=== PATIENT | female | born 1950 | race Caucasian/White ===

== ENCOUNTER → 2018-05-05 08:14 | Outpatient (CLI) | payer MEDICARE, OTHER, SELFPAY ==
[2018-05-05 09:49] LABS: Add Manual Diff / Slide Review NO; Basophils Percent Auto 0.6 % (0-2); Eosinophils Percent Auto 1.9 % (2-4); Hematocrit 41.3 % (36-46); Hemoglobin 13.8 g/dL (12.0-16.0); Lymphocytes Percent Auto 31.6 % (25-40); Mean Corpuscular HGB Conc 33.5 % (30-36); Mean Corpuscular Hemoglobin 29.9 PG (26-34); Mean Corpuscular Volume 89.2 fL (80-100); Monocytes Percent Auto 6.4 % (3-14); Neutrophils Absolute Auto 3000 /uL (3000-5900); Neutrophils Percent Auto 59.5 % (50-75); Platelet Count 317 X10^3/uL (150-400); Red Blood Cell Count 4.63 X10^6/uL (4.0-5.2); Red Cell Distribution Width 14.9 % (11.6-14.8)
[2018-05-05 10:27] LABS: Alanine Aminotransferase 63 IU/L (9-52); Albumin 4.3 g/dL (3.5-5.0); Albumin Globulin Ratio 1.7 (1.0-2.8); Alkaline Phosphatase 101 U/L (38-126); Aspartate Aminotransferase 39 IU/L (14-36); Blood Urea Nitrogen 21 mg/dL (7-17); Calcium 9.4 mg/dL (8.4-10.2); Carbon Dioxide 30 mmol/L (22-32); Chloride 104 mmol/L (98-107); Cholesterol 152 mg/dL (140-199); Estimated Glomerular Filt Rate > 60.0 mL/min (>60); Globulin 2.5 g/dL (1.7-4.1); Glucose 95 mg/dL (80-110); HDL Cholesterol 71 mg/dL (40-60); HEMOLYSIS < 15 (0-50); LDL Cholesterol Calculated 73 mg/dL (<100); Potassium 4.5 mmol/L (3.4-5.1); Sodium 141 mmol/L (137-145); Total Protein 6.8 g/dL (6.3-8.2); Triglycerides 38 mg/dL (35-150)
[2018-05-05 10:53] LABS: Thyroid Stimulating Hormone 2.75 uIU/mL (0.47-4.68)
== END ==
PROVIDERS: Family Provider Internal Medicine; PCP Internal Medicine; Visit Provider Internal Medicine
DX: I25.2 Old myocardial infarction (principal); I10 Essential (primary) hypertension; E78.5 Hyperlipidemia, unspecified
CPT/HCPCS: 36415; 80053; 80061; 84443; 85025

== ENCOUNTER → 2018-08-23 08:26 | Outpatient (CLI) | payer MEDICARE, OTHER, SELFPAY ==
[2018-08-23 09:44] LABS: Alanine Aminotransferase 36 IU/L (9-52); Albumin 4.3 g/dL (3.5-5.0); Alkaline Phosphatase 77 U/L (38-126); Aspartate Aminotransferase 22 IU/L (14-36); Bilirubin Total 0.9 mg/dL (0.2-1.3); Bilirubin Unconjugated 0.9 mg/dL (0.0-1.1); Globulin 2.2 g/dL (1.7-4.1); HEMOLYSIS < 15 (0-50); Total Protein 6.5 g/dL (6.3-8.2)
== END ==
PROVIDERS: PCP Internal Medicine; Visit Provider Internal Medicine
DX: R74.8 Abnormal levels of other serum enzymes (principal)
CPT/HCPCS: 36415; 80076

== ENCOUNTER → 2019-03-22 13:04 | Outpatient (CLI) | payer MEDICARE, OTHER, SELFPAY ==
--- NOTE | 2019-03-22 | DI.US.S_ITS ---
ULTRASOUND OF RIGHT BREAST: 03/22/2019 CLINICAL: Patient returns for a 6 month follow up of the right breast. Comparison is made to exams dated: 03/22/2019 mammogram, 01/07/2017 ultrasound, 01/07/2017 mammogram, 02/11/2016 ultrasound, 02/11/2016 mammogram, and 01/29/2016 mammogram - [facility]. Color flow ultrasound of the right breast was performed on the areas of interest. Parsons scale images of the real-time examination were reviewed. There is a round cyst in the right breast at 12 o'clock anterior depth. This round cyst is hypoechoic with internal echoes. This abnormality is decreased in size. Color flow imaging demonstrates that there is no vascularity present. There also is a round cyst in the right breast at 10 o'clock middle depth. This round cyst is hypoechoic with internal echoes. This abnormality is decreased in size and correlates with mammography findings. Color flow imaging demonstrates that there is no vascularity present. IMPRESSION: PROBABLY BENIGN The round cyst in the right breast at 12 o'clock anterior depth is consistent with a complicated cyst and is probably benign. The round cyst in the right breast at 10 o'clock middle depth is consistent with a complicated cyst and is probably benign. A follow-up ultrasound in 12 months is recommended. This exam was interpreted at Station ID: [id number]. SUMMARY: The patient will be due for her bilateral mammogram at this time. Electronically Signed By: Neeru shaikh/:03/23/2019 09:01:02 letter sent: Followup Recommended Ultrasound BI-RADS: 3 Probably benign
--- NOTE | 2019-03-22 | DI.MG.S_ITS ---
BILATERAL DIGITAL DIAGNOSTIC MAMMOGRAM 3D/2D SHORT-TERM FOLLOW-UP: 03/22/2019 CLINICAL: Patient returns for 6 month follow up of right breast, due for bilateral exam. Comparison is made to exams dated: 01/07/2017 mammogram, 02/11/2016 mammogram, and 01/29/2016 mammogram - [facility]. There are scattered fibroglandular elements in both breasts. No significant masses, calcifications, or other findings are seen in either breast. IMPRESSION: INCOMPLETE: NEEDS ADDITIONAL IMAGING EVALUATION There is no mammographic abnormality seen in the right breast to correspond with the ultrasound finding from the January 2017 ultrasound examination, however, ultrasound is recommended to further characterize findings. This exam was interpreted at Station ID: [id number]. NOTE: For mammograms, a report in lay terms will be sent to the patient. Approximately 15% of breast malignancies will not be visualized mammographically. In the management of a palpable breast mass, a negative mammogram must not discourage biopsy of a clinically suspicious lesion. Electronically Signed By: Neeru Byrd M.D. lk/:03/22/2019 13:54:17 ACR BI-RADS Category 0: Incomplete [id number]
== END ==
PROVIDERS: Family Provider Internal Medicine; PCP Internal Medicine; Visit Provider Internal Medicine
DX: R92.8 Other abnormal and inconclusive findings on diagnostic imaging of breast (principal); N60.01 Solitary cyst of right breast
CPT/HCPCS: 76642; 77066; G0279

== ENCOUNTER 2019-05-28 12:51 | Emergency (ER) | payer MEDICARE, OTHER, SELFPAY ==
[2019-05-28 13:17] VITALS: BP 128/59; PULSE 74; RESP 15; TEMP 36.4; O2SAT 99; BMI 24.7
[2019-05-28] MEDS: PROPARACAINE 0.5% OPHTH SOL 1 DROPS EYE-RIGHT (14:19)
[2019-05-28 14:42] VITALS: BP 112/66; PULSE 72; RESP 17; O2SAT 100
--- NOTE | 2019-05-28 17:14 | ED_ITS ---
HPI - Eye Problem <EMILIA Estrella - Last Filed: 05/28/19 17:14> General Chief complaint: Eye Problems Stated complaint: poked right eye Time Seen by Provider: 05/28/19 13:24 Source: patient and family Mode of arrival: ambulatory Limitations: no limitations History of Present Illness HPI Narrative: The patient is a 68year-old female former smoker with history of hypertension who presents with a chief complaint of right eye problems. She states she was weeding, but over to pull a weed and hit herself in the right eye with a bamboo she weed. She states that her vision is normal for her. She wears hard contact lenses and has removed it from her eye. Chart review illustrate her tetanus up-to-date. She denies any abnormal vision, haloing of light, double vision. She denies any acute distress. Patient denies any foreign body sensation. Related Data Previous Rx's Medication Instructions Recorded aspirin 81 mg tablet,delayed 81 mg PO QDAY #90 tab 03/23/18 release atorvastatin 40 mg tablet 40 mg PO HS #90 tab 08/22/18 amlodipine 5 mg tablet 5 mg PO QDAY #90 tab 08/29/18 ciprofloxacin HCl 2 drop EYE-RIGHT Q6HR 5 Days #10 ml 05/28/19 Allergies Allergy/AdvReac Type Severity Reaction Status Date / Time Penicillins Allergy Mild RASH Unverified 08/29/18 10:29 Review of Systems <EMILIA Estrella - Last Filed: 05/28/19 17:14> Review of Systems GENERAL: Denies chills, fatigue, malaise, fever, sweats. HEENT: See HPI RESPIRATORY: Denies dyspnea, cough, wheezing, hemoptysis, sputum. CARDIOVASCULAR: Denies chest pain, palpitations, orthopnea, edema, GASTROINTESTINAL: Denies nausea, vomiting, abdominal pain, diarrhea, constipation, melena. : Denies dysuria, frequency, incontinence, hematuria, urinary retention. MUSCULOSKELETAL: denies weakness, joint pain, or bony pain SKIN: Denies rash, skin lesions, or other NEUROLOGIC: Denies weakness, headache, numbness, change in speech, confusion, seizures, incoordination. PSYCHIATRIC: No concerning psychosocial issues. 12 point review of systems is negative except for those stated above PFSH <DYLAN Estrella - Last Filed: 05/28/19 17:14> Medical History Colon polyps (Chronic) Hyperlipidemia (Chronic) Leukopenia (Chronic) Murmur, cardiac (Chronic) Shoulder pain (Chronic ~07/2013) Chicken pox (Resolved) Surgical History Anesthesia (Resolved) Status post delivery (~1981) Status post tonsillectomy and adenoidectomy (~1957) Family History (Updated 09/18/14 @ 00:00 by Conversion Provider) Father Age: 92 CAD (coronary artery disease) of bypass graft [place], old Diabetes mellitus Colon cancer Mother Age: 92 Hypertension Diabetes mellitus Sister Age: 75 Diabetes mellitus Social History Smoking Status: Former smoker Family History Father Age: 92 CAD (coronary artery disease) of bypass graft [place], old Diabetes mellitus Colon cancer Mother Age: 92 Hypertension Diabetes mellitus Sister Age: 75 Diabetes mellitus Social History Smoking Status: Former smoker Exam <DYLAN Estrella - Last Filed: 05/28/19 17:14> Narrative Exam Narrative: GENERAL: This is a well-nourished, well-developed patient in no acute distress HEAD: Atraumatic. Normocephalic. No temporal or scalp tenderness. EYES: Pupils equal round and reactive. Extraocular motions intact. No scleral icterus. No injection or drainage. Corneal abrasion noted lateral aspect of right eye under fluorescein exam. Left eye pressure with Rashaun-Pen 19. Right eye pressure with Rashaun-Pen 20. ENT: Nose without bleeding, purulent drainage or septal hematoma. Throat without erythema, tonsillar hypertrophy or exudate. Uvula midline. Airway patent. NECK: Trachea midline. No JVD or lymphadenopathy. Supple, nontender, no meningeal signs. CARDIOVASCULAR: Regular rate and rhythm RESPIRATORY: No cough. No increased respiratory effort. No accessory muscle use. BACK: Nontender without deformity or crepitance. No flank tenderness. NEURO: AOx3. SKIN: No rash or erythema. Initial Vital Signs Initial Vital Signs: Vital Signs Temperature 97.5 F L 05/28/19 13:17 Pulse Rate 74 05/28/19 13:17 Respiratory Rate 15 05/28/19 13:17 Blood Pressure 128/59 L 05/28/19 13:17 Pulse Oximetry 99 05/28/19 13:17 <Marianne Tucker DO - Last Filed: 05/30/19 23:16> Initial Vital Signs Initial Vital Signs: Vital Signs Temperature 97.5 F L 05/28/19 13:17 Pulse Rate 74 05/28/19 13:17 Respiratory Rate 15 05/28/19 13:17 Blood Pressure 128/59 L 05/28/19 13:17 Pulse Oximetry 99 05/28/19 13:17 Course <DYLAN Estrella - Last Filed: 05/28/19 17:14> Orders Ordered: Discontinued Medications Proparacaine HCl (Parcaine 0.5% Ophth Nelia) 1 drops EYE-RIGHT NOW ONE Stop: 05/28/19 13:24 Last Admin: 05/28/19 14:19 Dose: 1 drop Vital Signs - 8 hr 05/28/19 13:17 05/28/19 14:42 Temperature 97.5 F L Pulse Rate 74 72 Respiratory Rate 15 17 Blood Pressure 128/59 L Blood Pressure [Left Arm] 112/66 Pulse Oximetry 99 100 <Marianne Tucker DO - Last Filed: 05/30/19 23:16> Orders Ordered: Discontinued Medications Proparacaine HCl (Parcaine 0.5% Ophth Nelia) 1 drops EYE-RIGHT NOW ONE Stop: 05/28/19 13:24 Last Admin: 05/28/19 14:19 Dose: 1 drop Vital Signs - 8 hr 05/28/19 13:17 05/28/19 14:42 Temperature 97.5 F L Pulse Rate 74 72 Respiratory Rate 15 17 Blood Pressure 128/59 L Blood Pressure [Left Arm] 112/66 Pulse Oximetry 99 100 MDM - Eye Problem <DYLAN Estrella - Last Filed: 05/28/19 17:14> MDM Narrative Medical decision making narrative: The patient is a 5-year-old female who presents with the complaint of a weed to her eye. She has a corneal abrasion on exam, so placed her on Cipro drops as she is a contact lens wearer. She states that her vision is normal for her, and her visual acuities complicated by the fact that when I was contacted at with the other does not. The patient's tetanus is up-to-date. I discussed at length return precautions, encouraged follow-up with PCP as well as Ophthalmology. Patient's pressures with Rashaun-Pen or reassuring. Discussed at length follow up with PCP, discussed return precautions the emergency department of any acute concerns, visual changes etc Discharge Plan Departure Patient Disposition: Home Clinical Impression: Abrasion, corneal Qualifiers: Encounter type: initial encounter Laterality: right Qualified Code(s): S05.01XA - Injury of conjunctiva and corneal abrasion without foreign body, right eye, initial encounter Discharge Date/Time: 05/28/19 14:52 Interventions: ED Discharge Assessment Last Done: 05/28/19 14:50 Instructions: DI for Corneal Abrasion Activity Restrictions/Additional Instructions: Your tetanus is up-to-date. I have given you a prescription for an antibiotic for your corneal abrasion. Please follow up with PCP as well as Ophthalmology if needed. Please come back to the emergency department for any acute concerns such as decreased vision, visual concerns etc Prescriptions: New ciprofloxacin HCl 0.3 % drops 2 drop EYE-RIGHT Q6HR 5 Days Qty: 10 RF: 0 No Action atorvastatin 40 mg tablet 40 mg PO HS Qty: 90 RF: 3 aspirin 81 mg tablet,delayed release (DR/EC) 81 mg PO QDAY Qty: 90 RF: 3 amlodipine [Norvasc] 5 mg tablet 5 mg PO QDAY Qty: 90 RF: 3 Referrals: Angela Zepeda ARNP [Primary Care Provider] - <Marianne Tucker DO - Last Filed: 05/30/19 23:16> [facility] ED Attending [place] Attestation: I was immediately available in the [facility] tment for consultation. Documentation has been reviewed. I agree with assessment and plan.
== END 2019-05-28 14:52 | disposition home or self-care (01) ==
PROVIDERS: Emergency Provider Nurse Practitioner Family; PCP Internal Medicine
DX: S05.01XA Injury of conjunctiva and corneal abrasion without foreign body, right eye, initial encounter (principal)
CPT/HCPCS: 99282; 99283

== ENCOUNTER 2019-06-23 11:58 | Day surgery (SDC) | payer MEDICARE, OTHER, SELFPAY ==
[2019-06-23] MEDS: HYOSCYAMINE 0.125 MG TABLET PO (12:26)
[2019-06-23] MEDS: SODIUM CHLORIDE 0.9% 1,000 ML 200 ML IV (12:26)
[2019-06-23 12:39] VITALS: BP 111/66; PULSE 65; RESP 16; TEMP 36; O2SAT 99; BMI 28.2
--- NOTE | 2019-06-23 13:59 | PM.PREOP ---
Pre-operative Note Interval Note History & Physical reviewed/Exam performed by Physician: Yes Changes to H&P: No ASA Class (for procedural sedation): II
--- NOTE | 2019-06-23 13:59 | PM.OP.ENDO ---
Operative Date/Time/Diagnoses Date of procedure: 06/23/19 Time of procedure: 14:00 Pre-op diagnosis: 1. History of colon polyps 2. Family history of colon polyps 3. Screening for colon cancer Post-op diagnosis: same Procedure & Clinicians Study performed: Colonoscopy Same procedure as scheduled: Yes Indications: 1. History of colon polyps 2. Family history of colon cancer 3. Screening for colon cancer Surgeon: Ching Stewart Procedure Notes SCOAP/Timeout: 14:09 Procedure in detail: ENDOSCOPIST: Ching Stewart MD Sedation RN: Meghan Vieyra RN Sedation start time: 2:09 p.m. Sedation end time: 2:30 p.m. PROCEDURE: Colonoscopy INDICATIONS: 1. History of colon polyps 2. Family history of colon cancer 3. Screening for colon cancer MEDICATION: Levsin 0.125 mg sublingual, incremental doses of Versed and fentanyl until appropriate level sedation achieved. ASA CLASS: 2 CECAL WITHDRAWAL TIME: 7 minutes. COMPLICATIONS: None. EXTENT OF PROCEDURE: Cecum. QUALITY OF PREP: Good with portions of liquid stool. PROCEDURE: Prior to insertion of the colonoscope, a digital rectal examination was accomplished with circumferential palpation of the distal rectal mucosa without significant findings being noted. The high-definition pediatric colonoscope was passed into the rectum in the usual fashion and advanced over to the cecum without difficulty. The ileocecal valve, appendiceal stoma, and medial wall all could be inspected and no abnormalities were seen. ASCENDING COLON: As the colonoscope was withdrawn, care was taken to expose and inspect the haustral folds and no abnormalities were seen. HEPATIC FLEXURE: Normal no polyps, diverticula or other abnormalities. TRANSVERSE COLON: Normal no polyps, diverticula or other abnormalities. DESCENDING COLON: Normal no polyps, diverticula or other abnormalities. SIGMOID COLON: Minor diverticulosis, otherwise, normal, no polyps, or other abnormalities. RECTUM: Normal. J maneuver was produced. There was no significant perianal disease. The J maneuver was broken. The remainder of the rectum was inspected and there was no external hemorrhoid disease. The scope was withdrawn. IMPRESSION: 1. Normal colonoscopy 2. Diverticulosis, left-sided, minor PLAN: 1. Repeat colonoscopy in 5 years secondary to family history The possibility of a missed lesion including a malignancy has been discussed with the patient previously. Potential alarm symptoms have been discussed and should be reported immediately. Scope withdrawal time: 7 minutes Sedation minutes: 21 Findings: diverticulosis Specimen(s): none sent Complications: none Impression: 1. Normal colonoscopy 2. Diverticulosis, sigmoid, mild Post-procedure Recommendations: Colonscopy in 5 years Follow up: as needed Disposition: PACU
--- NOTE | 2019-06-23 14:01 | P.HP_ITS ---
History of Present Illness History of Present Illness Date Patient Seen: 06/23/19 Time Patient Seen: 14:01 Chief complaint: 80170 COLONOSCOPY Narrative: 68-year-old female has come in today for consideration of a screening colonoscopy. Two previous colonoscopies, last in 2012, normal. Previous history of colon polyps, records unavailable at time of dictation. Family history of colon cancer in her father and paternal cousin. There have been no lower GI symptoms suggesting disease such as a change in bowel habits, bleeding, abdominal pain, or anemia. Overall health issues have been stable, including no major cardiac events for the last 6 weeks. Past medical history: Hyperlipidemia History of colon polyps Abnormal mammogram MRI Hair loss Hyperlipidemia Past surgical history: Tonsillectomy, age 8 , Catheterization status post PA, 2014 Family history: Father, diabetes, heart disease, colon cancer Mother: Diabetes, hypertension Maternal cousin: Colon cancer Social history: Single, retired technical support specialist. Patient History Family & Social History Social History: household members none Tobacco & Substance use: Smoking Status Former smoker alcohol intake frequency a few times a month Substance Use Type does not use Meds Home Medications and Allergies Home Medications Medication Instructions Recorded Confirmed Type aspirin 81 mg tablet,delayed 81 mg PO QDAY #90 tab 03/23/18 06/23/19 Rx release atorvastatin 40 mg tablet 40 mg PO HS #90 tab 08/22/18 06/23/19 Rx amlodipine 5 mg tablet 5 mg PO QDAY #90 tab 08/29/18 06/23/19 Rx Allergies Allergy/AdvReac Type Severity Reaction Status Date / Time Penicillins Allergy Mild RASH Verified 06/23/19 12:21 Review of Systems Review of Systems ROS Unobtainable: All systems reviewed & are unremarkable except as noted in HPI and below Exam Vital Signs (past 8 hours): - 06/23/19 12:39 Temperature 96.8 F L Pulse Rate 65 Respiratory Rate 16 Blood Pressure 111/66 Pulse Oximetry 99 Oxygen Delivery Method Room Air Narrative Exam Narrative: GENERAL: Alert and oriented, appearing stated age and in no acute distress. HEENT: Head normocephalic/atraumatic. Pupils equal, round, and reactive to light and accomodation. Extraocular muscles intact. Tympanic membranes clear. Nasal mucosa moist, septum midline. Oral mucosa moist, no lesions. Neck soft and supple, no lymphadenopathy. LUNGS: Clear to ausculation bilaterally, no wheezes, rhonchi or rales. CV: Normal S1 and S2 with regular rate and rhythm, no audible murmurs, rubs or gallops. ABDOMEN: Soft, non-tender, non-distended, no organomegaly. Positive bowel sounds. EXTREMITIES: No clubbing, cyanosis, or edema. NEURO: Cranial nerves II through XII grossly intact, no focal deficits. PSYCH: Alert and oriented x 3. SKIN: No concerning lesions. Assessment & Plan Assessment & Plan narrative: 1. History of colon polyps 2. Family history of colon cancer 3. Screening for colon cancer Will proceed to colonoscopy. The nature and character of the procedure as well as anticipated results were discussed. The possibility of not completing the procedure was also discussed. Possible complications including aspiration pneumonia, bleeding, perforation, and reaction to medications either for sedation or perforation and missed lesions were discussed. Questions were answered and proceeding to the colonoscopy was elected. Informed consent signed.
[2019-06-23] MEDS: MIDAZOLAM 5 MG/5 ML VIAL IV (14:33)
[2019-06-23] MEDS: fentaNYL 250 MCG/5 ML INJ IV (14:34)
[2019-06-23 14:35] VITALS: BP 101/63; PULSE 80; RESP 14; TEMP 36.1; O2SAT 97
[2019-06-23 14:40] VITALS: BP 105/62; PULSE 69; RESP 16; O2SAT 97
[2019-06-23 14:46] VITALS: BP 112/62; PULSE 68; RESP 16; O2SAT 96
== END 2019-06-23 15:00 | disposition home or self-care (01) ==
PROVIDERS: PCP Internal Medicine; Visit Provider Student in an Organized Health Care Education/Training Program
PROC: 0DJD8ZZ Inspection of Lower Intestinal Tract, Via Natural or Artificial Opening Endoscopic (ICD-10-PCS; CPT 45378; principal; 2019-06-23 13:00)
DX: Z86.010 Personal history of colon polyps (principal); K57.30 Diverticulosis of large intestine without perforation or abscess without bleeding
CPT/HCPCS: G0105; J2250; J3010

== ENCOUNTER → 2020-07-25 12:33 | Outpatient (CLI) | payer MEDICARE, OTHER, SELFPAY ==
--- NOTE | 2020-07-25 | DI.US.S_ITS ---
LIMITED ULTRASOUND OF RIGHT BREAST: 07/25/2020 CLINICAL: 12 month follow-up of cysts. Comparison is made to exams dated: 07/25/2020 mammogram, 03/22/2019 ultrasound, 03/22/2019 mammogram, 01/07/2017 ultrasound, 01/07/2017 mammogram, and 02/11/2016 [facility]. Color flow ultrasound of the right breast was performed. Parsons scale images of the real-time examination were reviewed. There is a stable benign 0.2 cm x 0.2 cm x 0.1 cm round cyst in the right breast at 12 o'clock anterior depth 2 cm from the nipple. This round cyst is hypoechoic with internal echoes. Color flow imaging demonstrates that there is no vascularity present. This lesion has not significantly changed when compared to multiple prior exams dating back to 02/11/2016, and is therefore considered benign. There also is a stable benign 0.6 cm x 0.3 cm x 0.3 cm round cyst in the right breast at 10 o'clock middle depth 5 cm from the nipple. This round cyst is hypoechoic with internal echoes. This correlates with mammography findings. Color flow imaging demonstrates that there is no vascularity present. This lesion has not significantly changed when compared to multiple prior exams dating back to 02/11/2016, and is therefore considered benign. IMPRESSION: BENIGN There is no sonographic evidence of malignancy. The stable 0.2 cm x 0.2 cm x 0.1 cm round cyst in the right breast at 12 o'clock anterior depth is consistent with a complicated cyst and is benign. The stable 0.6 cm x 0.3 cm x 0.3 cm round cyst in the right breast at 10 o'clock middle depth is consistent with a complicated cyst and is benign. A 1 year screening mammogram is recommended. This exam was interpreted at Station ID: [id number]. Electronically Signed By: Ruben gutierrez/mahsa:07/25/2020 14:44:56 letter sent: Normal Exam Ultrasound BI-RADS: 2 Benign
--- NOTE | 2020-07-25 | DI.MG.S_ITS ---
BILATERAL DIGITAL DIAGNOSTIC MAMMOGRAM 3D/2D SHORT-TERM FOLLOW-UP: 07/25/2020 CLINICAL: Short term follow up of the right breast, due for bilateral imaging. Comparison is made to exams dated: 03/22/2019 mammogram, 01/07/2017 mammogram, 02/11/2016 mammogram, and 03/22/2019 [facility]. There are scattered fibroglandular elements in both breasts. No significant masses, calcifications, or other findings are seen in either breast. IMPRESSION: INCOMPLETE: NEEDS ADDITIONAL IMAGING EVALUATION There is no mammographic abnormality seen in the right breast to correspond with the ultrasound findings from 03/22/2019 and 01/07/2017, however, ultrasound is recommended. This exam was interpreted at Station ID: [id number]. NOTE: For mammograms, a report in lay terms will be sent to the patient. Approximately 15% of breast malignancies will not be visualized mammographically. In the management of a palpable breast mass, a negative mammogram must not discourage biopsy of a clinically suspicious lesion. Electronically Signed By: Ruben Hale M.D. ar/:07/25/2020 14:22:33 ACR BI-RADS Category 0: Incomplete 3340F
== END ==
PROVIDERS: PCP Internal Medicine; Referring Provider Internal Medicine; Visit Provider Internal Medicine
DX: R92.8 Other abnormal and inconclusive findings on diagnostic imaging of breast (principal); N60.01 Solitary cyst of right breast
CPT/HCPCS: 76642; 77066; G0279

== ENCOUNTER → 2020-10-31 15:11 | Outpatient (CLI) | payer MEDICARE, OTHER, SELFPAY ==
[2020-10-31] MEDS: COVID-19 VACC #1, MRNA(MOD) 100 MCG/0.5 ML VIAL IM (15:17)
== END ==
PROVIDERS: PCP Internal Medicine; Visit Provider Internal Medicine
DX: Z23 Encounter for immunization (principal)
CPT/HCPCS: 0011A; 91301

== ENCOUNTER → 2020-11-28 15:18 | Outpatient (CLI) | payer MEDICARE, OTHER, SELFPAY ==
[2020-11-28] MEDS: COVID-19 VACC #2, MRNA(MOD) 100 MCG/0.5 ML VIAL IM (15:23)
== END ==
PROVIDERS: PCP Internal Medicine; Visit Provider Internal Medicine
DX: Z23 Encounter for immunization (principal)
CPT/HCPCS: 0012A; 91301

== ENCOUNTER → 2021-01-23 13:53 | Outpatient (CLI) | payer MEDICARE, OTHER, SELFPAY | PROVIDERS: PCP Internal Medicine; Referring Provider Internal Medicine; Visit Provider Internal Medicine | DX: M85.851 Other specified disorders of bone density and structure, right thigh (principal); Z78.0 Asymptomatic menopausal state; Z87.891 Personal history of nicotine dependence | CPT/HCPCS: 77080 ==

== ENCOUNTER → 2021-03-31 09:38 | Outpatient (CLI) | payer MEDICARE, OTHER, SELFPAY ==
[2021-03-31 11:53] LABS: COVID19 -Nasal RAPID Negative (Negative)
== END ==
PROVIDERS: PCP Internal Medicine; Referring Provider Physician Assistant; Visit Provider Physician Assistant
DX: Z01.812 Encounter for preprocedural laboratory examination (principal); Z20.822 Contact with and (suspected) exposure to COVID-19
CPT/HCPCS: 87635; C9803

== ENCOUNTER → 2021-04-02 10:40 | Outpatient (CLI) | payer MEDICARE, OTHER, SELFPAY ==
--- NOTE | 2021-04-02 11:50 | PM.TREADMILL ---
Cardiac Stress Test Report Referral & Results Date Patient Seen: 04/02/21 Time Patient Seen: 11:50 Requesting provider: Hernan French Indication: Essential hypertension Rest ECG: Sinus rhythm Procedure Note: Standard Philip protocol, 9:00 mins, 8.8 METS Excellent exercise capacity, GOLDEN -56% Normal hemodynamic response to exercise 0.5/10 sternum chest tightness at 2:56 mins into exercise which increased to 2/10 chest tightness at 2:54 mins into stage 2 with no EKG changes Nonspecific ST changes in II, III, aVF, V4-V6; rare PVC Impression: Symptom positive exercise stress test Please note: Actual ECG tracings can be found in the PACS system.
--- NOTE | 2021-04-03 18:35 | DI.NM.S_ITS ---
DATE OF SERVICE: 04/02/2021 PROCEDURE PERFORMED: Exercise treadmill stress and rest myocardial perfusion imaging study with gating to assess ejection fraction and regional wall motion. ORDERING PROVIDER: Dr. Hernan French. INDICATIONS: The patient is a 70-year-old female with exertional dyspnea and chest discomfort with a history of coronary artery spasm. EXERCISE TREADMILL TESTING: The patient was able to exercise for a total of 9 minutes on a standard Philip protocol suggesting excellent exercise capacity with an GOLDEN of -56%, achieving 8.8 METs. She had a normal heart rate and blood pressure response to exercise, achieving a maximum heart rate of 130 BPM (88% of her predicted maximum). She had very slight chest discomfort at the end of stage I, which increased slightly to a level of 2/10 at the end of stage II. Her resting ECG shows sinus rhythm with low-voltage QRS, but relatively normal ST segments. There are no significant ST-segment shifts with exercise and only occasional isolated PVCs at peak exercise but no concerning arrhythmias. At 7 minutes, 19 seconds of exercise at a heart rate of 127, BPM, 26.3 millicuries of technetium-99m Myoview was injected and the patient was imaged 15 minutes later using a gated SPECT acquisition protocol. The following day she returned and was injected with 24.6 millicuries of technetium-99m Myoview while at rest and was imaged 30 minutes later, again using a gated SPECT acquisition protocol. FINDINGS: 1. Raw Data: There is good myocardial tracer uptake with minimal breast shadows noted. The lung/heart ratio is normal at 0.24 with a normal TID ratio of 0.90. 2. Quantitated gated SPECT: Post-stress ejection fraction is estimated at 93%, likely an overestimate because of relatively small left ventricular volumes, and no focal wall motion abnormalities. Resting ejection fraction is estimated at 85%, again without any focal abnormality. Resting end-diastolic volume is normal at 61 mL. 3. Myocardial perfusion imaging: Post-stress supine images shows a normal myocardial perfusion pattern without any perfusion defects, supported by a normal, homogeneous perfusion pattern on the prone images. The resting images show an identical perfusion pattern without any areas of improvement. IMPRESSION: 1. Normal myocardial perfusion study. 2. No evidence of myocardial ischemia or previous myocardial infarction. 3. High normal left ventricular systolic function with relatively small left ventricular volumes. 4. Excellent exercise capacity with mild, atypical chest discomfort, but no associated ECG changes of ischemia. There were rare isolated PVCs, but no concerning arrhythmias. YazBrandi - VIRGILIO/jeremiah/adrianna doc#: [id number]/job#: [id number] dd: 04/03/2021 13:14:00 dt: 04/03/2021 18:04:00 DICTATING MD/COPIES TO: Ajay Garcia MD; Hernan French MD COPIES MNE: AROLDO;
== END ==
PROVIDERS: PCP Internal Medicine; Referring Provider Internal Medicine Cardiovascular Disease; Visit Provider Internal Medicine Cardiovascular Disease
DX: I25.111 Atherosclerotic heart disease of native coronary artery with angina pectoris with documented spasm (principal); R06.00 Dyspnea, unspecified; I10 Essential (primary) hypertension
CPT/HCPCS: 78452; 93017; A9502

== ENCOUNTER → 2021-04-03 11:29 | Outpatient (CLI) | payer MEDICARE, OTHER, SELFPAY ==
--- NOTE | 2021-04-03 | DI.RAD.S_ITS ---
PROCEDURE: XR CHEST 2V INDICATIONS: Dyspnea, unspecified TECHNIQUE: 2 views of the chest were acquired. COMPARISON: [facility], CHEST 1 VIEW, 03/26/2017, 13:02. [facility], CHEST 1 VIEW, 02/06/2017, 5:20. FINDINGS: Surgical changes and devices: None. Lungs and pleura: Lungs are clear. No pleural effusions or pneumothorax. Mediastinum: Mediastinal contours are normal. Heart size is normal. Bones and chest wall: No suspicious bony abnormalities. Soft tissues appear unremarkable. IMPRESSION: Normal for age, source of current dyspnea symptoms is not seen. Dictated by: Harman Whiteside M.D. on 04/03/2021 at 13:38 Approved by: Harman Whiteside M.D. on 04/03/2021 at 13:38
== END ==
PROVIDERS: PCP Internal Medicine; Referring Provider Internal Medicine Cardiovascular Disease; Visit Provider Internal Medicine Cardiovascular Disease
DX: R07.89 Other chest pain (principal); R06.00 Dyspnea, unspecified
CPT/HCPCS: 71046; 93005

== ENCOUNTER → 2021-06-12 11:48 | Outpatient (CLI) | payer MEDICARE, OTHER, SELFPAY ==
[2021-06-12 12:37] LABS: COVID19 -Nasal RAPID Negative (Negative)
== END ==
PROVIDERS: PCP Internal Medicine; Referring Provider Internal Medicine; Visit Provider Internal Medicine
DX: Z20.822 Contact with and (suspected) exposure to COVID-19 (principal)
CPT/HCPCS: 87635; C9803

== ENCOUNTER → 2021-06-13 06:46 | Outpatient (CLI) | payer MEDICARE, OTHER, SELFPAY ==
--- NOTE | 2021-06-20 08:31 | P.PFT.S_ITS ---
Pulmonary Function Test Referral & Results Date Patient Seen: 06/13/21 Requesting provider: Angela Zepeda Results: The spirometry demonstrates an FVC of 2.61 L which is 98% of predicted. The FEV1 was measured at 1.96 L which is 98% of predicted. The FEV1/FVC ratio was 75 which is 100% of predicted. Following the administration of bronchodilator there was a 10% improvement in FEV1 and a 52% improvement in FEF 25-75% Lung volumes show an SVC of 2.70 L which is 103% of predicted. The diffusing capacity was measured at 15.77 which is 73% of predicted. No hemoglobin value was provided, so no correction for potential anemia could be made, if appropriate. The maximum voluntary ventilation was normal Interpretation: This study demonstrates normal spirometry and minimally reduced diffusing cap acity suggesting the possibility of disease at the capillary alveolar level
== END ==
PROVIDERS: PCP Internal Medicine; Referring Provider Internal Medicine; Visit Provider Internal Medicine
DX: R06.09 Other forms of dyspnea (principal); J98.8 Other specified respiratory disorders; Z87.891 Personal history of nicotine dependence
CPT/HCPCS: 94060; 94726; 94729

== ENCOUNTER → 2021-06-30 10:27 | Outpatient (CLI) | payer MEDICARE, OTHER, SELFPAY ==
[2021-06-30 15:09] LABS: COVID19 -Nasal RAPID Negative (Negative)
== END ==
PROVIDERS: PCP Internal Medicine; Visit Provider Nurse Practitioner Family
DX: Z20.822 Contact with and (suspected) exposure to COVID-19 (principal); Z01.812 Encounter for preprocedural laboratory examination
CPT/HCPCS: 87635

== ENCOUNTER → 2021-08-16 08:40 | Outpatient (CLI) | payer MEDICARE, OTHER, SELFPAY ==
--- NOTE | 2021-08-16 | DI.MG.S_ITS ---
BILATERAL DIGITAL SCREENING MAMMOGRAM 3D/2D WITH CAD: 08/16/2021 CLINICAL: Routine screening. Comparison is made to exams dated: 07/25/2020 mammogram, 03/22/2019 mammogram, and 01/07/2017 mammogram - [facility]. There are scattered fibroglandular elements in both breasts. Current study was also evaluated with a Computer Aided Detection (CAD) system. There is an irregular high density asymmetry with a spiculated margin in the left breast at 2 o'clock posterior depth. This is more prominent and increased in size. There also is an oval asymmetry in the left breast at 3 o'clock middle depth. This is increased in size. No other significant masses, calcifications, or other findings are seen in either breast. IMPRESSION: INCOMPLETE: NEEDS ADDITIONAL IMAGING EVALUATION The irregular high density asymmetry in the left breast at 2 o'clock posterior depth is indeterminate. The oval asymmetry in the left breast at 3 o'clock middle depth is indeterminate. Additional views with possible ultrasound are recommended. This exam was interpreted at Station ID: [id number]. NOTE: For mammograms, a report in lay terms will be sent to the patient. Approximately 15% of breast malignancies will not be visualized mammographically. In the management of a palpable breast mass, a negative mammogram must not discourage biopsy of a clinically suspicious lesion. Electronically Signed By: Jane briones/:08/18/2021 09:58:50 letter sent: Additional Imaging Needed ACR BI-RADS Category 0: Incomplete 3340F
== END ==
PROVIDERS: PCP Internal Medicine; Referring Provider Internal Medicine; Visit Provider Internal Medicine
DX: Z12.31 Encounter for screening mammogram for malignant neoplasm of breast (principal)
CPT/HCPCS: 77063; 77067

== ENCOUNTER → 2021-09-15 13:50 | Outpatient (CLI) | payer MEDICARE, OTHER, SELFPAY ==
--- NOTE | 2021-09-15 | DI.MG.S_ITS ---
UNILATERAL LEFT DIGITAL DIAGNOSTIC MAMMOGRAM 3D/2D WITH ADDITIONAL VIEWS: 09/15/2021 CLINICAL: Additional evaluation requested from prior study. Comparison is made to exams dated: 08/16/2021 mammogram, 07/25/2020 mammogram, and 03/22/2019 mammogram - [facility]. There are scattered fibroglandular elements in left breast. There is an irregular high density asymmetry with a spiculated margin in the left breast at 3 o'clock posterior depth. The appearance with compression is unchanged compared to screening mammogram and no underlying mass is identified. No other significant masses or calcifications are seen in the breast. IMPRESSION: INCOMPLETE: NEEDS ADDITIONAL IMAGING EVALUATION The irregular high density asymmetry in the left breast at 3 o'clock posterior depth is indeterminate. An ultrasound is recommended. US will be performed and dictated separately. This exam was interpreted at Station ID: [id number]. NOTE: For mammograms, a report in lay terms will be sent to the patient. Approximately 15% of breast malignancies will not be visualized mammographically. In the management of a palpable breast mass, a negative mammogram must not discourage biopsy of a clinically suspicious lesion. Electronically Signed By: Fausto Polanco acr/:09/15/2021 14:56:11 Entry: - 09/16/2021 11:59:51 ACR BI-RADS Category 0: Incomplete 3340F
--- NOTE | 2021-09-15 | DI.US.S_ITS ---
ULTRASOUND OF LEFT BREAST: 09/15/2021 CLINICAL: Patient returns today to evaluate two focal asymmetries in the left breast. Comparison is made to exams dated: 09/15/2021 mammogram, 08/16/2021 mammogram, 07/25/2020 mammogram, 03/22/2019 mammogram, 01/07/2017 ultrasound, and 01/07/2017 mammogram - [facility]. Color flow and real-time ultrasound of the left breast were performed. Parsons scale images of the real-time examination were reviewed. There is a 0.4 cm x 0.6 cm x 0.2 cm complicated cyst in the left breast at 1 o'clock posterior depth 1 cm from the nipple. There also is a 0.3 cm x 0.4 cm x 0.2 cm oval mass in the left breast at 2 o'clock posterior depth. This oval mass is isoechoic. Color flow imaging demonstrates that there is no vascularity present. Additionally, there is a 0.3 cm x 0.3 cm x 0.2 cm irregular mass in the left breast at 3 o'clock posterior depth. Color flow imaging demonstrates that there is no vascularity present. IMPRESSION: PROBABLY BENIGN The 0.4 cm x 0.6 cm x 0.2 cm complicated cyst in the left breast at 1 o'clock posterior depth is consistent with a complicated cyst and is probably benign. The 0.3 cm x 0.4 cm x 0.2 cm oval mass in the left breast at 2 o'clock posterior depth is consistent with a complicated cyst and is probably benign. The 0.3 cm x 0.3 cm x 0.2 cm irregular mass in the left breast at 3 o'clock posterior depth is probably benign. A follow-up left mammogram and an ultrasound in 6 months is recommended to demonstrate stability. This exam was interpreted at Station ID: [id number]. Electronically Signed By: Fausto Polanco acr/:09/16/2021 13:18:07 letter sent: Followup Recommended Ultrasound BI-RADS: 3 Probably benign
== END ==
PROVIDERS: PCP Internal Medicine; Referring Provider Internal Medicine; Visit Provider Internal Medicine
DX: R92.8 Other abnormal and inconclusive findings on diagnostic imaging of breast (principal); N60.02 Solitary cyst of left breast; N63.21 Unspecified lump in the left breast, upper outer quadrant; N63.25 Unspecified lump in the left breast, overlapping quadrants
CPT/HCPCS: 76642; 77065; G0279

== ENCOUNTER → 2021-10-30 08:52 | Outpatient (CLI) | payer MEDICARE, OTHER, SELFPAY ==
[2021-10-30 10:32] LABS: COVID19 -Nasal RAPID Negative (Negative)
== END ==
PROVIDERS: PCP Internal Medicine; Referring Provider Internal Medicine Critical Care Medicine; Visit Provider Internal Medicine Critical Care Medicine
DX: J43.2 Centrilobular emphysema (principal); R94.2 Abnormal results of pulmonary function studies; R06.00 Dyspnea, unspecified; Z20.822 Contact with and (suspected) exposure to COVID-19
CPT/HCPCS: 87635; 94060; 94726; 94729; C9803

== ENCOUNTER → 2021-11-06 14:11 | Outpatient (CLI) | payer MEDICARE, OTHER, SELFPAY ==
--- NOTE | 2021-11-06 14:14 | DI.CT.S_ITS ---
PROCEDURE: CT CHEST HIGH RESOLUTION INDICATIONS: Centrilobular emphysema TECHNIQUE: Noncontrast 1.0 and 5.0 mm thick contiguous axial sections from the pulmonary apex to the posterior costophrenic angles, with 7 mm thick coronal and sagittal MIP reformats. 1 mm thick dynamic expiratory images acquired through the upper, mid, and lower lungs. 1.0 mm thick axial sections acquired from the hoa to the posterior costophrenic angles in the prone end-inspiration position. For radiation dose reduction, the following was used: automated exposure control, adjustment of mA and/or kV according to patient size. COMPARISON: None. FINDINGS: Image quality: Excellent. Lungs: Mild to moderate emphysematous change. No significant pulmonary nodules. No acute airspace opacity. No air trapping. No honeycombing. The central airways are clear. No bronchiectasis. Pleura: No pleural effusions or pneumothorax. Mediastinum: Heart size is normal. No pericardial effusion. Thoracic aorta and central pulmonary arteries are normal in size. Esophagus is normal in caliber. Bones and chest wall: No suspicious bony lesions. No vertebral body compression fractures. Abdomen: Visualized upper abdominal solid organs and bowel loops appear normal. IMPRESSION: 1. No significant interstitial lung disease. 2. Uodb-ko-funeabwa centrilobular emphysema. 3. No significant pulmonary nodules. 4. No adenopathy. Dictated by: Alejandro Lou M.D. on 11/06/2021 at 17:04 Approved by: Alejandro Lou M.D. on 11/06/2021 at 17:10
== END ==
PROVIDERS: PCP Internal Medicine; Referring Provider Internal Medicine Critical Care Medicine; Visit Provider Internal Medicine Critical Care Medicine
DX: J43.2 Centrilobular emphysema (principal); R94.2 Abnormal results of pulmonary function studies; R06.00 Dyspnea, unspecified
CPT/HCPCS: 71250

== ENCOUNTER → 2022-07-03 08:28 | Outpatient (CLI) | payer MEDICARE, OTHER, SELFPAY ==
--- NOTE | 2022-07-03 08:29 | DI.RAD.S_ITS ---
PROCEDURE: XR ELBOW LT MIN 3V INDICATIONS: left arm pain TECHNIQUE: 3 views of the elbow were acquired. COMPARISON: None. FINDINGS: Bones: No fractures or dislocations. No suspicious bony lesions. Soft tissues: No elbow joint effusion. No suspicious soft tissue calcifications. IMPRESSION: No acute elbow fracture or dislocation. No joint effusion. Dictated by: Hilario Peralta M.D. on 07/03/2022 at 8:48 Approved by: Hilario Peralta M.D. on 07/03/2022 at 8:53
== END ==
PROVIDERS: PCP Internal Medicine; Referring Provider Nurse Practitioner Critical Care Medicine; Visit Provider Nurse Practitioner Critical Care Medicine
DX: M25.522 Pain in left elbow (principal)
CPT/HCPCS: 73080

== ENCOUNTER 2022-08-24 16:42 | Outpatient (CLI) | payer MEDICARE, OTHER, SELFPAY ==
--- NOTE | 2022-08-24 16:44 | DI.MRI.S_ITS ---
PROCEDURE: MR HEAD/BRAIN WO/W CON INDICATIONS: HYPOSMIA TECHNIQUE: Noncontrast axial T1 spin echo, axial T2 fast spin echo, sagittal and axial FLAIR, coronal T2 fast spin echo, axial gradient echo, axial diffusion and ADC through the brain. After the administration of contrast, axial and coronal and sagittal T1 spin echo with fat saturation through the brain. COMPARISON: None. FINDINGS: Image quality: Excellent. CSF spaces: Basal cisterns are patent. No extra-axial fluid collections. Ventricles are normal in size and shape. Brain: No midline shift. No intracranial bleeds or masses. No abnormal intracranial enhancement. There is cerebral volume loss for age. There is periventricular white matter chronic small vessel ischemic change. The brainstem appears normal. Diffusion-weighted images demonstrate no acute ischemic insults. There is a remote appearing cystic focus seen involving the left basal ganglia, as on series 8, image 11 that measures up to 9 mm. No surrounding edema is seen. No associated enhancement can be seen. Normal intravascular flow voids are present. In this patient with this given history, scrutiny is given to the anterior skull base. No masses or abnormal enhancement can be seen within this region. Skull and face: Calvarial marrow is normal in signal. Orbits appear normal. Sinuses: Sinuses and mastoids appear clear. IMPRESSION: No imaging explanation is found for this patient's presenting symptoms. No masses or abnormal enhancement can be seen. No findings of acute or subacute infarction can be seen. 9 mm chronic appearing cystic lesion involving the left basal ganglia. This may represent a remote infarct. Dictated by: Alcon Null M.D. on 08/25/2022 at 8:19 Approved by: Alcon Null M.D. on 08/25/2022 at 8:22
== END 2022-11-10 17:30 | disposition home or self-care (01) ==
PROVIDERS: Family Provider Internal Medicine; PCP Internal Medicine; Referring Provider Otolaryngology; Visit Provider Otolaryngology
DX: R43.8 Other disturbances of smell and taste (principal); G93.9 Disorder of brain, unspecified; H81.12 Benign paroxysmal vertigo, left ear; H61.23 Impacted cerumen, bilateral; H90.3 Sensorineural hearing loss, bilateral
CPT/HCPCS: 70553; A9579

== ENCOUNTER → 2022-12-03 11:46 | Outpatient (CLI) | payer MEDICARE, OTHER, SELFPAY ==
--- NOTE | 2022-12-03 | DI.MG.S_ITS ---
BILATERAL DIGITAL DIAGNOSTIC MAMMOGRAM 3D/2D: 12/03/2022 CLINICAL: Short term follow up of the left breast, due for bilateral imaging. Comparison is made to exams dated: 09/15/2021 ultrasound, 09/15/2021 mammogram, 08/16/2021 mammogram, 07/25/2020 mammogram, and 03/22/2019 mammogram - [facility]. There are scattered areas of fibroglandular density in both breasts (category b / 25%-50% glandular tissue). There is a stable irregular high density asymmetry with a spiculated margin in the left breast at 3 o'clock posterior depth. There also is an oval asymmetry in the left breast at 3 o'clock middle depth. This is increased in size. No other significant masses, calcifications, or other findings are seen in either breast. IMPRESSION: INCOMPLETE: NEEDS ADDITIONAL IMAGING EVALUATION The stable irregular high density asymmetry in the left breast at 3 o'clock posterior depth is consistent with a cyst and is indeterminate. An ultrasound is recommended. The oval asymmetry in the left breast at 3 o'clock middle depth is indeterminate. An ultrasound is recommended. Follow-up with ACR/ACS guidelines. Based on the Tyrer Cuzick model (a risk assessment model) the patient's lifetime risk is 4.5% and her 10 year risk is 4.0%. According to the ACR, ACS, and NCCN guidelines, an annual breast MRI exam along with mammogram is recommended if the patient's lifetime risk is 20% or greater. This exam was interpreted at Station ID: [id number]. NOTE: For mammograms, a report in lay terms will be sent to the patient. Approximately 15% of breast malignancies will not be visualized mammographically. In the management of a palpable breast mass, a negative mammogram must not discourage biopsy of a clinically suspicious lesion. Electronically Signed By: Shashi Herman M.D., jr/mahsa:12/03/2022 15:43:40 ACR BI-RADS Category 0: Incomplete 3340F
--- NOTE | 2022-12-03 | DI.US.S_ITS ---
LIMITED ULTRASOUND OF LEFT BREAST: 12/03/2022 CLINICAL: Late add views of Left Breast. Comparison is made to exams dated: 12/03/2022 mammogram, 09/15/2021 ultrasound, 09/15/2021 mammogram, and 08/16/2021 mammogram - [facility]. Color flow and real-time ultrasound of the left breast 1-3 o'clock region were performed. Parsons scale images of the real-time examination were reviewed. There is a benign 0.4 cm x 0.6 cm x 0.2 cm cyst in the left breast at 1 o'clock posterior depth 1 cm from the nipple. There also is a stable benign 0.3 cm x 0.4 cm x 0.2 cm oval cyst in the left breast at 2 o'clock posterior depth. Additionally, there is a benign 0.3 cm x 0.3 cm x 0.2 cm irregular cyst in the left breast at 3 o'clock posterior depth. IMPRESSION: BENIGN There is no sonographic evidence of malignancy. The 0.4 cm x 0.6 cm x 0.2 cm cyst in the left breast at 1 o'clock posterior depth is benign. The stable 0.3 cm x 0.4 cm x 0.2 cm oval cyst in the left breast at 2 o'clock posterior depth is benign. The 0.3 cm x 0.3 cm x 0.2 cm irregular cyst in the left breast at 3 o'clock posterior depth is benign. A 1 year screening mammogram is recommended. This exam was interpreted at Station ID: [id number]. Electronically Signed By: Shashi Herman M.D., jr/mahsa:12/03/2022 15:44:55 letter sent: Normal Exam Ultrasound BI-RADS: 2 Benign
== END ==
PROVIDERS: Family Provider Internal Medicine; PCP Internal Medicine; Referring Provider Internal Medicine; Visit Provider Internal Medicine
DX: R92.8 Other abnormal and inconclusive findings on diagnostic imaging of breast (principal); N60.02 Solitary cyst of left breast
CPT/HCPCS: 76642; 77066; G0279

== ENCOUNTER → 2023-12-16 12:37 | Outpatient (CLI) | payer MEDICARE, OTHER, SELFPAY ==
--- NOTE | 2023-12-16 | DI.MG.S_ITS ---
BILATERAL DIGITAL SCREENING MAMMOGRAM 3D/2D WITH CAD: 12/16/2023 CLINICAL: Routine screening. Comparison is made to exams dated: 12/03/2022 mammogram, 09/15/2021 mammogram, 08/16/2021 mammogram, 07/25/2020 mammogram, and 03/22/2019 mammogram - [facility]. There are scattered areas of fibroglandular density in both breasts (category b / 25%-50% glandular tissue). Current study was also evaluated with a Computer Aided Detection (CAD) system. There is a focal asymmetry in the left breast upper outer quadrant at posterior depth. No other significant masses, calcifications, or other findings are seen in either breast. IMPRESSION: INCOMPLETE: NEEDS ADDITIONAL IMAGING EVALUATION The focal asymmetry in the left breast is indeterminate. A diagnostic mammogram and ultrasound is recommended. Based on the Tyrer Cuzick model (a risk assessment model) the patient's lifetime risk is 4.1% and her 10 year risk is 4.1%. According to the ACR, ACS, and NCCN guidelines, an annual breast MRI exam along with mammogram is recommended if the patient's lifetime risk is 20% or greater. This exam was interpreted at Station ID: [id number]. NOTE: For mammograms, a report in lay terms will be sent to the patient. Approximately 15% of breast malignancies will not be visualized mammographically. In the management of a palpable breast mass, a negative mammogram must not discourage biopsy of a clinically suspicious lesion. Electronically Signed By: Lisa Cervantes M.D., PH.D eb/:12/16/2023 23:57:57 letter sent: Additional Imaging Needed ACR BI-RADS Category 0: Incomplete 3340F
== END ==
PROVIDERS: Family Provider Internal Medicine; PCP Internal Medicine; Referring Provider Internal Medicine; Visit Provider Internal Medicine
DX: Z12.31 Encounter for screening mammogram for malignant neoplasm of breast (principal); R92.323 Mammographic fibroglandular density, bilateral breasts
CPT/HCPCS: 77063; 77067

== ENCOUNTER → 2024-01-14 11:48 | Outpatient (CLI) | payer MEDICARE, OTHER, SELFPAY ==
--- NOTE | 2024-01-14 11:52 | DI.MG.S_ITS ---
UNILATERAL LEFT DIGITAL DIAGNOSTIC MAMMOGRAM 3D/2D WITH ADDITIONAL VIEWS: 01/14/2024 CLINICAL: Additional evaluation requested from prior study. Comparison is made to exams dated: 12/16/2023 mammogram, 12/03/2022 mammogram, 08/16/2021 mammogram, and 07/25/2020 mammogram - [facility]. There are scattered areas of fibroglandular density in the left breast (category b / 25%-50% glandular tissue). There is a focal asymmetry in the left breast at 2 o'clock middle depth. This is less prominent. No other significant masses or calcifications are seen in the breast. IMPRESSION: INCOMPLETE: NEEDS ADDITIONAL IMAGING EVALUATION The focal asymmetry in the left breast resembles fibroglandular tissue and is indeterminate. A targeted ultrasound is recommended and will immediately follow. Based on the Tyrer Cuzick model (a risk assessment model) the patient's lifetime risk is 4.1% and her 10 year risk is 4.1%. According to the ACR, ACS, and NCCN guidelines, an annual breast MRI exam along with mammogram is recommended if the patient's lifetime risk is 20% or greater. This exam was interpreted at Station ID: [id number]. NOTE: For mammograms, a report in lay terms will be sent to the patient. Approximately 15% of breast malignancies will not be visualized mammographically. In the management of a palpable breast mass, a negative mammogram must not discourage biopsy of a clinically suspicious lesion. Electronically Signed By: Alejandro Lou M.D. slc/:01/14/2024 13:35:43 ACR BI-RADS Category 0: Incomplete 3340F
--- NOTE | 2024-01-14 11:53 | DI.US.S_ITS ---
LIMITED ULTRASOUND OF LEFT BREAST: 01/14/2024 CLINICAL: Patient returns today to evaluate a focal asymmetry in the left breast. Comparison is made to exams dated: 01/14/2024 mammogram, 12/16/2023 mammogram, 12/03/2022 ultrasound, 12/03/2022 mammogram, 09/15/2021 ultrasound, and 09/15/2021 mammogram - [facility]. Color flow and real-time ultrasound of the left breast 2 o'clock region were performed. Parsons scale images of the real-time examination were reviewed. There is a benign 0.4 cm oval simple cyst in the left breast at 2 o'clock middle depth 6 cm from the nipple. This oval simple cyst is anechoic with a well-defined boundary. This correlates with mammography findings. Color flow imaging demonstrates that there is no vascularity present. IMPRESSION: BENIGN There is no sonographic evidence of malignancy. The 0.4 cm oval simple cyst in the left breast is benign. A 1 year screening mammogram is recommended. Exam findings were conveyed to the patient. This exam was interpreted at Station ID: [id number]. Electronically Signed By: Alejandro Lou M.D. slc/:01/14/2024 13:42:16 letter sent: Normal Exam Ultrasound BI-RADS: 2 Benign
--- NOTE | 2024-01-14 11:53 | DI.CT.S_ITS ---
PROCEDURE: CT ABDOMEN PANCREATIC PROTOCOL INDICATIONS: PANCREATIC PROTOCAL TECHNIQUE: Both before and after the administration of intravenous contrast, 3 mm thick pancreatic-phase images acquired from the diaphragm to the iliac crests. 3 mm thick coronal and sagittal reformats were performed. For radiation dose reduction, the following was used: automated exposure control, adjustment of mA and/or kV according to patient size. COMPARISON: None. FINDINGS: Image quality: Diagnostic. Lower chest: Unremarkable. ABDOMEN: Pancreas: No solid mass. No ductal dilation. Normal enhancement. There is an atherosclerotic calcification associated with the splenic artery. No peripancreatic inflammation. Liver: No suspicious mass or cyst. Gallbladder: Contracted. No calcifications. Biliary ducts: No biliary dilation. Adrenal Glands: No nodules. Spleen: Size is within normal limits. Kidneys and Ureters: Symmetric enhancement. No nephrolithiasis or hydronephrosis. No hydroureter. Stomach and Bowel: Stomach and visible bowel loops are within normal limits. Peritoneum: No abnormal intraperitoneal fluid. No free air. Ventral Wall: No hernia. Abdominal Nodes: No retroperitoneal or mesenteric adenopathy by size criteria. Vessels: Aorta and inferior vena cava are normal in size. Moderate abdominal aortic atherosclerotic calcification. Bones: No aggressive osseous abnormality. Degenerative disc height loss at L5-S1. IMPRESSION: Normal pancreatic morphology. No abnormalities in the abdomen. Dictated by: Jane Jackson M.D. on 01/15/2024 at 16:27 Approved by: Jane Jackson M.D. on 01/15/2024 at 16:33
== END ==
PROVIDERS: Family Provider Internal Medicine; PCP Internal Medicine; Referring Provider Internal Medicine; Visit Provider Internal Medicine
DX: R92.8 Other abnormal and inconclusive findings on diagnostic imaging of breast (principal); N60.01 Solitary cyst of right breast; R92.322 Mammographic fibroglandular density, left breast; I70.0 Atherosclerosis of aorta; R10.13 Epigastric pain; R74.8 Abnormal levels of other serum enzymes
CPT/HCPCS: 74170; 76642; 77065; G0279; Q9967

== ENCOUNTER → 2024-04-30 10:35 | Outpatient (CLI) | payer MEDICARE, OTHER, SELFPAY ==
--- NOTE | 2024-04-30 10:38 | DI.RAD.S_ITS ---
PROCEDURE: XR FOOT LT MIN 3V INDICATIONS: Left foot pain, left pinky toe injury TECHNIQUE: 3 views of the foot were acquired. COMPARISON: None. FINDINGS: Bones: Oblique fracture through base of the 5th middle phalanx without displacement extends to the PIP joint Soft tissues: No tibiotalar joint effusion. Achilles tendon appears normal. IMPRESSION: Oblique 5th middle phalangeal intra-articular fracture Approved by: Mina Campbell M.D. on 04/30/2024 at 10:00
== END ==
PROVIDERS: Family Provider Internal Medicine; PCP Internal Medicine; Referring Provider Physician Assistant Surgical; Visit Provider Physician Assistant Surgical
DX: S92.522A Displaced fracture of middle phalanx of left lesser toe(s), initial encounter for closed fracture (principal); M79.672 Pain in left foot; X58.XXXA Exposure to other specified factors, initial encounter
CPT/HCPCS: 73630

== ENCOUNTER 2024-08-16 06:53 | Emergency (ER) | payer MEDICARE, OTHER, SELFPAY ==
[2024-08-16 06:58] VITALS: BP 182/81; PULSE 82; O2SAT 98
[2024-08-16 07:00] VITALS: BP 177/72; PULSE 97; O2SAT 98
[2024-08-16 07:04] VITALS: BP 177/72; PULSE 96; RESP 16; TEMP 36.3; O2SAT 97; BMI 25.4
--- NOTE | 2024-08-16 07:21 | ED_ITS ---
HPI - Female Genitourinary General Chief complaint: Urogenital-Female Stated complaint: thinks kidneys are failing Time Seen by Provider: 08/16/24 06:56 Source: patient Mode of arrival: Ambulatory History of Present Illness HPI Narrative: Patient here for possible side effects to new medication. Patient started Zoloft by primary care 2-3 weeks ago at 25 mg nightly. Patient has never had this medication before. Patient states in the 1st few days she had headaches and general abdominal discomfort which resolved with bbuu-euu-hiscmwu Excedrin. Never had chest pain shortness of breath palpitations. In last 4 days she has had decreased urine output. Has not urinated since 9:00 p.m. last night. In last 4 days she has had nocturnal diaphoresis. No chest pain nausea or shortness of breath. Related Data Home Medications Medication Instructions Recorded Confirmed atorvastatin 40 mg tablet 20 mg PO HS 12/24/22 Allergies Allergy/AdvReac Type Severity Reaction Status Date / Time Penicillins Allergy Mild RASH Verified 04/30/24 10:11 Review of Systems Review of Systems Narrative: GENERAL: negative chills, fatigue, malaise, fever, positive sweats. HEENT: negative sinus pain, ear pain, sore throat RESPIRATORY: negative dyspnea, cough CARDIOVASCULAR: negative chest pain, palpitations GASTROINTESTINAL: negative nausea, vomiting, abdominal pain : negative dysuria, frequency, hematuria, positive retention MUSCULOSKELETAL: negative muscle or bony pain SKIN: negative rash, skin lesions NEUROLOGIC: negative weakness, numbness ROS Unobtainable: All systems reviewed & are unremarkable except as noted in HPI and below Patient History Medical History (Updated 08/16/24 @ 09:16 by Nahid Castillo MD) Leukopenia Colon polyps Murmur, cardiac Hyperlipidemia Shoulder pain (~07/2013) Chicken pox Surgical History Anesthesia Status post delivery (~1981) Status post tonsillectomy and adenoidectomy (~1957) Family History Father Age: 97 CAD (coronary artery disease) of bypass graft [place], old Diabetes mellitus Colon cancer Mother Age: 97 Hypertension Diabetes mellitus Sister Age: 80 Diabetes mellitus alcohol intake frequency: a few times a month Substance Use Type: does not use Exam Narrative Exam Narrative: GENERAL: in no distress, not toxic not dyspneic HEAD: Normocephalic. EYES: Pupils equal round ENT: Mucous membranes moist. NECK: Trachea midline. CARDIOVASCULAR: Regular rate and rhythm RESPIRATORY: Clear to auscultation. Breath sounds equal bilaterally. No wheezes, rales, or rhonchi. GASTROINTESTINAL: Abdomen soft, non-tender, no suprapubic tenderness. No CVA tenderness EXTREMITIES: No gross deformities. BACK: No flank tenderness. NEURO: AOx4. SKIN: Warm and dry PSYCH: Not anxious, is cooperative Initial Vital Signs Initial Vital Signs: Vital Signs Pulse Rate 82 08/16/24 06:58 Blood Pressure 182/81 H 08/16/24 06:58 Pulse Oximetry 98 08/16/24 06:58 Oxygen Delivery Method Room Air 08/16/24 06:58 Course Orders Ordered: ED Orders 08/16/24 07:20 CT kidney ureter bladder (KUB) Stat 08/16/24 07:30 CBC Auto Diff [Complete Blood Count AUTO DIFF] Stat CMP [Comprehensive Metabolic Panel] Stat MAG [Magnesium] Stat TSH [Thyroid Stimulating Hormone] Stat 08/16/24 07:50 UA Complete [Urinalysis and Microscopic] Stat Discontinued Medications Sodium Chloride (Normal Saline 0.9%) 1,000 mls @ 1,000 mls/hr IV BOLUS ONE Stop: 08/16/24 08:20 Last Admin: 08/16/24 08:12 Dose: Not Given Documented By: RB Vital Signs Vital signs: Vital Signs - 8 hr 08/16/24 06:58 08/16/24 07:00 08/16/24 07:04 Temperature 97.4 F L Pulse Rate 82 97 H 96 H Respiratory Rate 16 Blood Pressure 182/81 H 177/72 H 177/72 H Pulse Oximetry 98 98 97 Oxygen Delivery Method Room Air Room Air Room Air 08/16/24 09:03 08/16/24 09:03 08/16/24 09:06 Temperature Pulse Rate 74 70 Respiratory Rate 16 Blood Pressure 157/71 H 157/71 H Pulse Oximetry 98 98 Oxygen Delivery Method Room Air 08/16/24 09:23 08/16/24 09:23 Temperature Pulse Rate 80 Respiratory Rate Blood Pressure 141/68 H Pulse Oximetry 98 Oxygen Delivery Method MDM - Female Genitourinary Lab Data 08/16/24 07:30 08/16/24 07:30 Labs: Lab Results 08/16/24 08/16/24 Range/Units 07:30 07:50 WBC 6.8 (4.5-11.0) X10^3/uL RBC 5.60 H (4.0-5.2) X10^6/uL Hgb 15.7 (12.0-16.0) g/dL Hct 47.1 H (36-46) % MCV 84.1 (80-100) fL MCH 28.0 (26-34) PG MCHC 33.3 (30-36) % RDW 17.8 H (11.6-14.8) % Plt Count 518 H (150-400) X10^3/uL Neut % (Auto) 77.6 H (50-75) % Lymph % (Auto) 15.8 L (25-40) % [place] % (Auto) 4.8 (3-14) % Eos % (Auto) 0.4 L (2-4) % Baso % (Auto) 1.4 (0-2) % Neut # (Auto) 5300 (7411-7233) /uL Lymph # (Auto) 1100 (7308-4436) /uL [place] # (Auto) 300 (0-900) /uL Eos # (Auto) 0 (0-450) /uL Baso # (Auto) 100 (0-100) /uL Sodium 137 (137-145) mmol/L Potassium 3.7 (3.4-5.1) mmol/L Chloride 104 (98-107) mmol/L Carbon Dioxide 26 (22-32) mmol/L BUN 15 (7-17) mg/dL Creatinine 0.68 (0.52-1.04) mg/dL Estimated GFR > 60 (>60) mL/min BUN/Creatinine Ratio 22.1 H (6-22) Glucose 125 H (80-110) mg/dL Calcium 9.4 (8.4-10.2) mg/dL Magnesium 1.9 (1.6-2.3) mg/dL Total Bilirubin 1.6 H (0.2-1.3) mg/dL AST 23 (14-36) IU/L ALT 21 (<35) IU/L Alkaline Phosphatase 88 (38-126) U/L Total Protein 6.9 (6.3-8.2) g/dL Albumin 4.3 (3.5-5.0) g/dL Globulin 2.6 (1.7-4.1) g/dL Albumin/Globulin Ratio 1.7 (1.0-2.8) TSH 3.93 (0.47-4.68) uIU/mL Urine Color Yellow Urine Appearance Clear Urine pH 5.5 (4.5-8.0) Ur Specific [place] 1.025 (1.000-1.035) Urine Protein Negative (Negative) Urine Glucose (UA) Negative (Negative) g/dL Urine Ketones Negative (NEGATIVE) Urine Occult Blood Negative (Negative) Urine Nitrate Negative (Negative) Urine Bilirubin Negative (NEGATIVE) Urine Urobilinogen 0.2 (0.2) E.U./dL Ur Leukocyte Esterase Negative (NEGATIVE) Urine RBC None seen (0-5/HPF) Urine WBC None seen (0-5/HPF) Ur Squamous Epith Cells None seen (0-5/HPF) Urine Bacteria None seen (None) Ur Culture Indicated? Cult not indicated Vol Urine Centrifuged 10ml (spun) Imaging Data CT scan - abdomen/pelvis: Radiologist's Impression: [place] [address] CT Scan Report Signed Patient: Brandi Mukherjee MR#: [id number] : 1950 Acct:[id number] Age/Sex: 74 / F Date of Service: 08/16/24 Loc: ED Accession Number: [id number] Procedure: CT kidney ureter bladder (KUB) Ordering Provider: Nahid Castillo MD PROCEDURE: CT KIDNEY URETER BLADDER (KUB) INDICATIONS: Flank pain TECHNIQUE: Axial sections were acquired from the lung bases to the pubic symphysis. Coronal and sagittal reformats were performed. For radiation dose reduction, the following was used: automated exposure control, adjustment of mA and/or kV according to patient size. COMPARISON: [facility], CT, CT ABDOMEN PANCREATIC PROTOCOL, 01/14/2024, 13:51. FINDINGS: Image quality: Diagnostic. Lower Chest: No significant findings. URINARY: Right Kidney: No stones or hydronephrosis. Right Ureter: No hydroureter. Left Kidney: No stones or hydronephrosis. Left Ureter: No hydroureter. Bladder: Normal wall thickness. No stones. ABDOMEN: Liver: No contour-deforming solid mass. Gallbladder: No radiopaque gallstones or wall thickening. Biliary ducts: No biliary dilation. Pancreas: No ductal dilation. Spleen: Size is within normal limits. Adrenal Glands: No adrenal nodules. Stomach and Bowel: Normal colonic caliber, without significant wall thickening. Moderate diffuse fecal load. Diverticulosis without evidence of acute diverticulitis. Peritoneum: No abnormal intraperitoneal fluid. No free air. Ventral Wall: No hernia. Abdominal Nodes: No enlarged retroperitoneal or mesenteric lymph nodes. Vessels: Aorta and inferior vena cava are normal in size. PELVIS: Pelvic Organs: Retroverted uterus with incidental calcified fibroids.. Pelvic Nodes: Unremarkable. Miscellaneous: No inguinal hernias are seen. Bones: Unremarkable. IMPRESSION: No acute abdominal process. Moderate fecal load. Diverticulosis without evidence of acute diverticulitis. Retroverted uterus. Dictated by: Phillip Wynne M.D. on 08/16/2024 at 8:49 Approved by: Phillip Wynne M.D. on 08/16/2024 at 8:51 [facility] Narrative Medical decision making narrative: Patient here for possible side effects to new medication. Patient started Zoloft by primary care 2-3 weeks ago at 25 mg nightly. Patient has never had this medication before. Patient states in the 1st few days she had headaches and general abdominal discomfort which resolved with uzru-mid-wvpsaow Excedrin. Never had chest pain shortness of breath palpitations. In last 4 days she has had decreased urine output. Has not urinated since 9:00 p.m. last night. In last 4 days she has had nocturnal diaphoresis. No chest pain nausea or shortness of breath. After history and exam CBC CMP magnesium urinalysis normal saline CT KUB TSH [facility] Medical records reviewed: No recent visit for this complaint Differential considered: Includes but not limited to urinary retention medication side-effect acute renal injury Lab Test results independently reviewed as above. Pertinent findings: WBC 6.8 hemoglobin 15.7 sodium 137 potassium 3.7 BUN 15 creatinine 0.68 GFR greater than 60 urinalysis negative glucose negative ketones negative nitrate negative leukocyte esterase TSH 3.93 Independently reviewed EKG not indicated this time Imaging studies independently reviewed: CT KUB no acute finding Consultations: None indicated at this time Treatments: Patient did not require normal saline. She was able to urinate here. Re-evaluations: 9:15 a.m.. Patient asymptomatic. Reviewed results with patient. Exam and laboratory studies imaging reassuring. She will contact her family doctor to wean off of Zoloft. Likely source of her symptoms. Does have moderate stool burden which could explain some of the abdominal discomfort. She will take bijv-omn-voxafti laxatives to help relief. She desires discharge home Discussion: Appropriate for discharge home exam is reassuring. No prescriptions indicated. Return precautions reviewed with patient. She will contact primary care to wean off of Zoloft. Diagnosis: Medication reaction Discharge Plan Departure Patient Disposition: Home Clinical Impression: Medication adverse effect Qualifiers: Encounter type: initial encounter Qualified Code(s): T50.905A - Adverse effect of unspecified drugs, medicaments and biological substances, initial encounter Instructions: Taking Prescription Medications, DI for Adverse Drug Reaction -- Allergic Activity Restrictions/Additional Instructions: Your symptoms are likely related to the new medication you are taking, sertraline/Zoloft, please contact your family doctor today regarding weaning off of this. Otherwise your laboratory studies imaging studies are reassuring today. Return if worse if any questions or concerns. Prescriptions: No Action atorvastatin 40 mg tablet 20 mg PO HS Referrals: Angela Zepeda ARNP [Primary Care Provider] - Stand Alone Forms: Patient Portal/API/Survey
[2024-08-16 07:38] LABS: Add Manual Diff / Slide Review NO; Basophils Absolute Auto 100 /uL (0-100); Basophils Percent Auto 1.4 % (0-2); Eosinophils Absolute Auto 0 /uL (0-450); Eosinophils Percent Auto 0.4 % (2-4); Hematocrit 47.1 % (36-46); Hemoglobin 15.7 g/dL (12.0-16.0); Lymphocytes Absolute Auto 1100 /uL (1100-4500); Lymphocytes Percent Auto 15.8 % (25-40); Mean Corpuscular HGB Conc 33.3 % (30-36); Mean Corpuscular Volume 84.1 fL (80-100); Monocytes Absolute Auto 300 /uL (0-900); Monocytes Percent Auto 4.8 % (3-14); Neutrophils Absolute Auto 5300 /uL (1500-7000); Neutrophils Percent Auto 77.6 % (50-75); Platelet Count 518 X10^3/uL (150-400); Red Cell Distribution Width 17.8 % (11.6-14.8); White Blood Cell Count 6.8 X10^3/uL (4.5-11.0)
[2024-08-16 07:52] LABS: Alanine Aminotransferase 21 IU/L (<35); Albumin 4.3 g/dL (3.5-5.0); Albumin Globulin Ratio 1.7 (1.0-2.8); Alkaline Phosphatase 88 U/L (38-126); Aspartate Aminotransferase 23 IU/L (14-36); BUN Creatinine Ratio 22.1 (6-22); Bilirubin Total 1.6 mg/dL (0.2-1.3); Blood Urea Nitrogen 15 mg/dL (7-17); Calcium 9.4 mg/dL (8.4-10.2); Carbon Dioxide 26 mmol/L (22-32); Chloride 104 mmol/L (98-107); Estimated Glomerular Filt Rate > 60 mL/min (>60); Globulin 2.6 g/dL (1.7-4.1); Glucose 125 mg/dL (80-110); HEMOLYSIS < 15 (0-50); Magnesium 1.9 mg/dL (1.6-2.3); Potassium 3.7 mmol/L (3.4-5.1); Sodium 137 mmol/L (137-145); Total Protein 6.9 g/dL (6.3-8.2)
[2024-08-16 08:03] LABS: Appearance Urine UA CLEAR; Bilirubin Urine UA NEGATIVE (NEGATIVE); Color Urine UA YELLOW; Glucose Urine UA NEGATIVE (Negative); Ketones Urine UA NEGATIVE (NEGATIVE); Leukocyte Esterase Urine UA NEGATIVE (NEGATIVE); Nitrite Urine UA NEGATIVE (Negative); Occult Blood Urine UA NEGATIVE (Negative); Protein Urine UA NEGATIVE (Negative); Specific Gravity Urine UA 1.025 (1.000-1.035); Urobilinogen Urine UA 0.2 E.U./dL (0.2); pH Urine UA 5.5 (4.5-8.0)
[2024-08-16 08:04] LABS: Urine Volume 10mL (spun)
[2024-08-16 08:05] LABS: Bacteria Urine None Seen; Culture Indicated Urine Cult Not Indicated; RBC Urine None Seen (0-5/HPF); Squamous Epithelial Cell Urine None Seen (0-5/HPF); WBC Urine None Seen (0-5/HPF)
--- NOTE | 2024-08-16 08:11 | PC.NURSE ---
Provider asked fluids not to be given since patient was able to urinate.
[2024-08-16 08:39] LABS: Thyroid Stimulating Hormone 3.93 uIU/mL (0.47-4.68)
[2024-08-16 09:03] VITALS: BP 157/71; PULSE 74; O2SAT 98
[2024-08-16 09:06] VITALS: BP 157/71; PULSE 70; RESP 16; O2SAT 98
[2024-08-16 09:23] VITALS: BP 141/68; PULSE 80; O2SAT 98
== END 2024-08-16 09:28 | disposition home or self-care (01) ==
PROVIDERS: Emergency Medicine; Emergency Provider Emergency Medicine; Family Provider Internal Medicine; PCP Internal Medicine
DX: R10.84 Generalized abdominal pain (principal); R51.9 Headache, unspecified; T43.225A Adverse effect of selective serotonin reuptake inhibitors, initial encounter
CPT/HCPCS: 36415; 74176; 80053; 81001; 83735; 84443; 85025; 99283; 99284

== ENCOUNTER → 2024-11-14 08:36 | Outpatient (CLI) | payer MEDICARE, OTHER, SELFPAY ==
--- NOTE | 2024-11-14 | DI.MG.S_ITS ---
UNILATERAL LEFT DIGITAL DIAGNOSTIC MAMMOGRAM 3D/2D: 11/14/2024 CLINICAL: Left breast lump. Comparison is made to exams dated: 01/14/2024 mammogram, 12/16/2023 mammogram, and 12/03/2022 mammogram - [facility]. There are scattered areas of fibroglandular density (category b / 25%-50% glandular tissue). There is a 2.8 cm irregular mass with a spiculated margin in the left breast at 3 o'clock middle depth. This correlates as palpated. No other significant masses or calcifications are seen in the breast. IMPRESSION: INCOMPLETE: NEED ADDITIONAL IMAGING EVALUATION The 2.8 cm irregular mass in the left breast is indeterminate. An ultrasound is recommended for further evaluation and is scheduled to immediately follow this examination. Based on the Tyrer Cuzick model (a risk assessment model) the patient's lifetime risk is 3.8% and her 10 year risk is 0.0%. According to the ACR, ACS, and NCCN guidelines, an annual breast MRI exam along with mammogram is recommended if the patient's lifetime risk is 20% or greater. This exam was interpreted at Station ID: [id number]. NOTE: For mammograms, a report in lay terms will be sent to the patient. Approximately 15% of breast malignancies will not be visualized mammographically. In the management of a palpable breast mass, a negative mammogram must not discourage biopsy of a clinically suspicious lesion. Electronically Signed By: Lisa Cervantes M.D., Ph.D. eb/:11/14/2024 10:22:11 letter sent: Additional Imaging Needed ACR BI-RADS Category 0: Incomplete: Need Additional Imaging Evaluation
--- NOTE | 2024-11-14 08:39 | DI.US.S_ITS ---
LIMITED ULTRASOUND OF LEFT BREAST AND AXILLA: 11/14/2024 CLINICAL: Palpable left breast lump. Comparison is made to exams dated: 11/14/2024 mammogram, 01/14/2024 ultrasound, 01/14/2024 mammogram, 12/16/2023 mammogram, 12/03/2022 ultrasound, and 12/03/2022 mammogram - [facility]. Color flow and real-time ultrasound of the left breast 2-4 o'clock, and axilla regions were performed. Parsons scale images of the real-time examination were reviewed. There is taller than wide irregular mass with a spiculated margin in the left breast at 3 o'clock, 4 cm from the nipple. The mass measures 2.8 x 2.1 x 1.4 cm. This irregular mass is hypoechoic. This correlates as palpated and with mammography findings. No abnormal lymph nodes are seen in the axilla. IMPRESSION: HIGHLY SUGGESTIVE OF MALIGNANCY Left breast 2.8 cm spiculated mass at 3 o'clock position corresponding to area of clinical palpable concern. Finding is highly suspicious. Recommend an ultrasound guided core biopsy. Findings and recommendations were discussed with the patient over the phone by Dr. Cervantes at the time of imaging completion. This exam was interpreted at Station ID: [id number]. Electronically Signed By: Lisa Cervantes M.D., Ph.D. eb/:11/14/2024 10:26:36 letter sent: Biopsy Required ACR BI-RADS Category 5: Highly Suggestive of Malignancy
== END ==
PROVIDERS: Family Provider Internal Medicine; PCP Internal Medicine; Referring Provider Internal Medicine; Visit Provider Internal Medicine
DX: N63.25 Unspecified lump in the left breast, overlapping quadrants (principal); R92.8 Other abnormal and inconclusive findings on diagnostic imaging of breast
CPT/HCPCS: 76642; 77065; G0279

== ENCOUNTER → 2024-12-08 12:27 | Outpatient (CLI) | payer MEDICARE, OTHER, SELFPAY ==
--- NOTE | 2024-12-08 12:29 | DI.MG.S_ITS ---
MM diagnostic mammo [id number]: 12/08/2024. BI-RADS: None CLINICAL: 74-year old female for left diagnostic mammogram that is a follow-up to diagnostic, left, digital, tomosynthesis on 11/14/2024. Tyrer-Cuzick lifetime risk of 3.4%. No personal or first-degree family history of breast cancer. The patient had a prior left breast biopsy. PRIOR EXAMS 11/14/2024, 01/14/2024, 12/16/2023, 12/03/2022, 09/15/2021, 08/16/2021, 07/25/2020, 03/22/2019, 01/07/2017, 02/11/2016, 01/29/2016. MAMMOGRAPHY TECHNIQUE: 2D and 3D (tomosynthesis) digital mammographic views obtained, with additional images as needed for full coverage. Current study was also evaluated with a Computer Aided Detection (CAD) system. DENSITY Left: C. The breasts are heterogeneously dense, which may obscure small masses. MAMMOGRAPHY FINDINGS Left: MLO only, Upper, Middle depth: There is a (Barbell) biopsy marker in targeted location. IMPRESSION: Left * Biopsy marker present. OVERALL ASSESSMENT CATEGORY BI-RADS None: This exam requires no BI-RADS. ELECTRONICALLY SIGNED: Bethany Ding M.D. on 12/08/2024 at 02:23:33 PM PT Interpreting Station ID: [id number]
--- NOTE | 2024-12-08 12:29 | DI.US.S_ITS ---
US bx breast perc w vac device: 12/08/2024. Rad-Path Correlation: Pending CLINICAL: 74-year old female for left procedure that resulted from ultrasound, left on 11/14/2024. Tyrer-Cuzick lifetime risk of 2.8%. No personal or first-degree family history of breast cancer. The patient had a prior left breast biopsy. PRIOR EXAMS 11/14/2024, 01/14/2024, 12/16/2023, 12/03/2022, 09/15/2021, 08/16/2021, 07/25/2020, 03/22/2019, 01/07/2017, 02/11/2016, 01/29/2016. CONSENT Risks including but not limited to bleeding and infection, benefits and alternatives were discussed with the patient. The patient agreed to the procedure and signed informed consent. Time out procedure was used. ROUTINE Left: Patient positioned in the supine or supine-oblique position, prepped and draped in the usual manner using sterile technique. TECHNIQUE Left Breast: Outer at 3:00, 4 cm from nipple, Posterior: Procedure: Ultrasound-guided vacuum-assisted biopsy of a mass with Barbell-shaped marker placement. Device: Vacuum-assisted biopsy instrument. Bard(R) Monopty(R) 14g. Approach: Lateral. Anesthesia: Local anesthesia obtained using 1%-lidocaine. Secondary local anesthesia obtained using 2%-lidocaine with epinephrine. Skin Entry: Incision with #11 blade. Passes: 4. Specimens: 4. Targeting Confirmation: Real-time Observation and Post-Procedure Imaging. Marker Placement: Barbell marker placed in target location. Post-procedure imaging: Post-procedure imaging confirms the marker to be in target location. Rad/Path Correlation: Pending receipt of pathology report. Conclusion: Ultrasound-guided Vacuum-assisted biopsy with post-procedure CC and ML mammographic views with marker placement, Left Breast: Outer at 3:00, 4 cm from nipple, Posterior COMPLICATIONS: No complications were encountered while the patient was in our department. DISPOSITION The patient left our department in good condition with aftercare instructions and urged to contact us should any further problem arise. The breast was compressed to achieve hemostasis. SUMMARY Left Breast: Outer at 3:00, 4 cm from nipple, Posterior: Ultrasound-guided vacuum-assisted biopsy of a mass with Barbell-shaped marker placement. PATHOLOGY Left Breast: Outer at 3:00, 4 cm from nipple, Posterior: Radiologist-Pathologist Correlation: Pending receipt of pathology report. ELECTRONICALLY SIGNED: Bethany Ding M.D. on 12/08/2024 at 02:09:30 PM PT Interpreting Station ID: [id number]
--- NOTE | 2024-12-08 13:54 | PATH_ITS ---
[facility] Accession Number: [id number] No. of containers..01 Tissue . 01 Material submitted: . breast - LEFT BREAST 3:00 4 CMFN . 01 Diagnosis: LEFT BREAST 3 O'CLOCK 4 CM FN, NEEDLE BIOPSY: Invasive mammary carcinoma; please see comment. Specimen Procedure: Needle biopsy. Specimen laterality: Left. Tumor Tumor site: 3 o'clock, 4 cmfn Histologic type: Invasive mammary carcinoma, not otherwise specified (ductal). Histologic grade Glandular (acinar/tubular differentiation): Score 3/3. Nuclear pleomorphism: Score 2/3. Mitotic rate: Score 1/3. Overall grade: Grade 2. Ductal carcinoma in situ: One focus present. Architectural patterns: Solid. Nuclear grade: Grade 1 (low). Necrosis: Not identified. Lymphovascular invasion: Not identified. Additional findings: Specimen is highly fragmented and tumor is present in one core of dense fibrous tissue. Please see comment. . Special studies: Predictive marker immunohistochemical studies are performed on block A1 with the invasive carcinoma showing the following results: . Estrogen receptor (SP1): Positive (91-100%, strong intensity). Progesterone receptor (1E2): Positive (91-100%, strong intensity). Her2 (4B5): Negative (1+) Ki-67 (MIB1): Low (5% average across tumor). . Internal controls for ER and MN are positive. Cold ischemic time is <1 minute. The scoring criteria for breast biomarkers by immunohistochemistry is based on the ASCO/CAP guidelines (Samson AC et al, J Clin Oncol: 2018 Apr 12;36(20):1309-1156 and Anitra ME et al, Arch Pathol Lab Med: 2009;134(6):907-22). Deparaffinized sections of formalin fixed tissue (along with appropriate positive controls) are incubated with the above antibody(s). Using the automated [place] stainer, tissue is incubated with the designated antibody which is then localized by a non-biotin, dual polymer detection system. The external controls are reviewed for appropriate reactivity and found to be adequate. Results on the target cell population are indicated above. These tests have not been validated on decalcified tissue. MRV 12/12/2024 1721 Local . 01 Comment: The biopsy is limited and contains a single, intact sclerotic core fragment with solid nests of malignant cells that demonstrate absent myoepithelial markers (p63 and SMMS-1), consistent with invasive tumor. Elsewhere, the biopsy demonstrates detached, solid tumor nests in mucin. The differential diagnosis includes an encapsulated papillary carcinoma and a solid papillary carcinoma. Classification of the tumor may best be determined on the excised specimen. . This case is also reviewed by Dr. Kelsey Reich, who agrees with the interpretation. . Dr. Margarita Rodriguez discussed results with Dr. Ana Luisa Hdez on 12-12-24 at approximately 4:34 p.m. . 01 Electronically signed: . Margarita Rodriguez MD, Pathologist NPI- [id number] . 01 Gross description: . Received in formalin, labeled with two identifiers and left breast 3 o'clock 4m FN, are multiple fragments of yellow to camara fibroadipose tissue admixed with hemorrhagic material aggregating to 2.5 x 2.1 x 0.2 cm. Filtered and submitted entirely in cassette A1. ([id number]) /[facility] 12/09/2024 1019 Local . 01 Microscopic: . An immunohistochemistry panel is performed to further evaluate the cells of interest. The control stains show appropriate reactivity. . RESULTS: Block A1 P63: Absent in regions of interest, supports the presence of invasion. Myosin: Absent in regions of interest, supports the presence of invasion. E-cadherin: Strongly positive, consistent with ductal differentiation. JUNO: Positive. GATA3: Positive, consistent with breast origin. . . * This test was developed and the performance characteristics were validated by [employer] ([email or web address]). It has not been cleared or approved by the U.S. Food and Drug Administration. . 01 Pathologist provided ICD-10: N63.20 . 01 CPT . 794721, G27803, Z83261, 398465, 601553, 220972, 915550 Specimen Comment: A courtesy copy of this report has been sent to [phone] Specimen Comment: [id number] Performed at: [address] [id number] MD Kishore Hampton MD Phone: [phone]
== END ==
PROVIDERS: Family Provider Internal Medicine; PCP Family Medicine; Referring Provider Family Medicine; Visit Provider Family Medicine
DX: C50.812 Malignant neoplasm of overlapping sites of left female breast (principal); R92.333 Mammographic heterogeneous density, bilateral breasts; Z17.0 Estrogen receptor positive status [ER+]
CPT/HCPCS: 19083; 77065

== ENCOUNTER → 2025-01-23 07:42 | Outpatient (CLI) | payer MEDICARE, OTHER, SELFPAY ==
--- NOTE | 2025-01-23 07:43 | DI.US.S_ITS ---
US breast RT limited, MM diagnostic mammo unilat RT: 01/23/2025 BI-RADS: 3 CLINICAL: 74-year old female for right diagnostic mammogram and right diagnostic breast ultrasound that is a follow-up to diagnostic, left, digital, tomosynthesis on 11/14/2024. No Tyrer-Cuzick risk score calculation due to the patient's personal history of breast cancer. No first-degree family history of breast cancer. The patient had a prior right breast biopsy. PRIOR EXAMS Mammogram(s): 12/08/2024. Breast Procedure(s): 12/08/2024. 21 Other Exams on 11/14/2024, 01/14/2024, 12/16/2023, 12/03/2022, 09/15/2021, 08/16/2021, 07/25/2020, 03/22/2019, 01/07/2017, 02/11/2016, 01/29/2016. MAMMOGRAPHY TECHNIQUE: 2D and 3D (tomosynthesis) digital mammographic views obtained, with additional images as needed for full coverage. Current study was also evaluated with a Computer Aided Detection (CAD) system. ULTRASOUND TECHNIQUE Real-time cline scale and color doppler imaging of the area of clinical interest was performed with image documentation. TARGETED Right Breast Ultrasound: Real-time ultrasound exam was performed focused to area of clinical and/or imaging concern. Right targeted breast ultrasound of the area of clinical interest and the axilla was performed with image documentation. DENSITY Right: B. There are scattered areas of fibroglandular density. MAMMOGRAPHY FINDINGS Right: Central, Middle depth, measuring 0.7 cm: There is an asymmetry present that has increased in size. This asymmetry is incidental. ULTRASOUND FINDINGS Right: Lower Inner at 4:30, Retroareolar, measuring 0.6 x 0.4 x 0.6 cm: Correlating with findings on mammogram there is an irregularly shaped, hypoechoic cyst vs solid mass showing posterior acoustic enhancement. Doppler shows only rim vascularity. Internally, there are possible low level echoes. Thin rim, but questionable angular margins. Right: No abnormal lymph nodes are seen in the axilla. IMPRESSION: Right (CvS): Lower Inner at 4:30, Retroareolar, measuring 0.6 x 0.4 x 0.6 cm * Probably Benign. RECOMMENDATIONS * Given patient history, breast MRI may be useful. Right: Lower Inner at 4:30, Retroareolar * Six month followup with diagnostic ultrasound. COMMENTS: Findings and recommendations were conveyed to the patient during today's evaluation. OVERALL ASSESSMENT CATEGORY BI-RADS-3: Probably Benign. ELECTRONICALLY SIGNED: Jane Jackson M.D. on 01/23/2025 at 10:18:34 AM PT Interpreting Station ID: [id number]
== END ==
PROVIDERS: Family Provider Internal Medicine; PCP Family Medicine; Referring Provider Family Medicine; Visit Provider Family Medicine
DX: N63.41 Unspecified lump in right breast, subareolar (principal); N64.89 Other specified disorders of breast; N64.4 Mastodynia; Z85.3 Personal history of malignant neoplasm of breast
CPT/HCPCS: 76642; 77065; G0279